=== PATIENT | female | born 2005 | race Caucasian/White ===

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

== ENCOUNTER 2023-05-06 16:36 | Emergency (ER) | payer MEDICAID, SELFPAY ==
[2023-05-06 16:58] VITALS: BP 143/78; PULSE 74; RESP 14; TEMP 36.8; O2SAT 100; BMI 26.9
--- NOTE | 2023-05-06 17:41 | ED_ITS ---
HPI - Dental/Oral General: Chief complaint: Dental/Oral Stated complaint: Mouth Pain Time Seen by Provider: 05/06/23 17:37 History of Present Illness: 17-year-old female comes in today with c omplaints of right upper jaw pain. Patient has some poor dentition with dental caries to the upper and lower wisdom teeth. Patient reports that for the last 2 days increasing pain and swelling to the right upper jaw. No obvious facial swelling is noted. Patient appears nontoxic. Patient is managing secretions well. Review of Systems General: Reports: 10 or more systems reviewed and unremarkable except in HPI and below PFSH ED PFSH: Medical History No significant past medical history Surgical History No significant past surgical history Physical Exam Const: COMMON NORMALS: alert HENMT: COMMON NORMALS: normocephalic and Normal external nose present HEAD & SCALP: normocephalic NOSE: Normal external nose present MOUTH: Normal oral and palatal mucosa present TEETH & GINGIVA: Yes gingiva abnormal (Gingival redness and swelling right upper jaw) and Yes other (Dental caries no keo to the third molar right upper jaw with surrounding red) Neck/C-Spine: COMMON NORMALS: full ROM and no meningeal signs Resp: COMMON NORMALS: normal respiratory effort Cardio: COMMON NORMALS: regular rate RATE: regular rate Back/Pelvis: COMMON NORMALS: thoracic and lumbar spine normal to inspection Extremity: COMMON NORMALS: full ROM Neuro: SENSORIUM/ORIENTATION: Yes alert MENINGEAL SIGNS: Yes no meningeal signs Skin: COMMON NORMALS: turgor normal GENERAL SKIN EXAM: turgor normal Course Vital Signs: Vital signs: Vital Signs Temperature 98.2 F 05/06/23 16:58 Pulse Rate 74 05/06/23 16:58 Respiratory Rate 14 05/06/23 16:58 Blood Pressure 143/78 05/06/23 16:58 Pulse Oximetry 100 05/06/23 16:58 Oxygen Delivery Me thod Room Air 05/06/23 16:58 [facility] - Dental/Oral Medical Decision Making 17-year-old female comes in with right upper jaw pain. On exam patient has some poor dentition especially noted with the wisdom teeth of the right side. Patient has significant decay to both teeth. The upper jaw gingiva is erythematous with swelling. No obvious dental abscesses noted. Reviewed exam with patient recommended treatment for dental abscess with antibiotic and NSAIDs. Encourage fluids rest and follow-up with dentist. Differential diagnosis considered but not limited to tooth ache, dental abscess, retropharyngeal abscess. No signs of serious illness or injury was noted. Patient reported understanding of care plan. No radiology studies performed this visit Discharge Plan Discharge Patient Disposition: Home Clinical Impression: Dental abscess Condition: Stable Prescriptions: New amoxicillin-pot clavulanate 875-125 mg tablet 1 tab PO BID Qty: 14 0RF ketorolac 10 mg tablet 10 mg PO Q6H 5 Days Qty: 10 0RF Rx Instructions: do not use with naproxen or ibuprofen Discharge Orders: Discharge ED (Routine); Ordered 05/06/23 Ordered By: Tapan Gongora Referrals: Shabbir Fitch DO [Primary Care Provider] - Discharge Diet: Usual diet Discharge Activity: Increase activity as tolerated Patient Instructions: Toothache (ED) Activity Restrictions/Additional Instructions: Take antibiotic as directed. 1 tablet of Augmentin twice a day for 7 days. Use ketorolac 10 mg 1 tablet every 6 hours as needed for pain. You may use acetaminophen with the ketorolac. Do not use ibuprofen or naproxen with ketorolac. Drink plenty of water with medications. Follow-up with dentist for definitive care. Use ice or heat for further pain relief. Return to ED for new concerns. Coding Level of Care Code ED Jewel Sorter for Shea Stanton
[2023-05-06] MEDS: amoxicillin-clav 875-125 mg Tablet 1 TAB PO (18:10)
[2023-05-06] MEDS: ketorolac 30 mg/mL INJ IM (18:10)
== END 2023-05-06 18:18 | disposition home or self-care (01) ==
PROVIDERS: Emergency Provider Nurse Practitioner Family; PCP Family Medicine
DX: K04.7 Periapical abscess without sinus (principal)
CPT/HCPCS: 96372; 99284; J1885

== ENCOUNTER 2024-01-02 13:37 | Emergency (ER) | payer MEDICAID, SELFPAY ==
[2024-01-02] VITALS (7 sets, daily range): BP systolic 97–133; BP diastolic 55–85; PULSE 55–83; RESP 16–18; TEMP 36.9; O2SAT 99–100; BMI 26.9
[2024-01-02 15:02] LABS: Basophils # 0.1 10^3/uL (0.0-0.1); Eosinophils # 0.1 10^3/uL (0.0-0.8); Eosinophils % 1.6 %; Hematocrit 40.3 % (36-47); Lymphocytes # 1.6 10^3/uL (1.5-6.5); Lymphocytes % 32.3 %; Mean Corpuscular HGB Conc 33.3 g/dL (30-55); Mean Corpuscular Hemoglobin 29.4 pg (27-33); Mean Corpuscular Volume 88.4 fl (85-98); Mean Platelet Volume 9.1 fL (7.4-10.4); Monocytes # 0.4 10^3/uL (0.2-0.9); Monocytes % 7.9 %; Neutrophils # 2.88 10^3/uL (1.8-8.0); Neutrophils % 56.6 %; Nucleated Red Blood Cells % 0 %; Platelet Count 253 10^3/cmm (157-399); Red Blood Count 4.56 10^6/uL (3.85-5.65); Red Cell Distribution Width 11.9 % (12.1-15.1); White Blood Count 5.08 10^3/uL (4.5-13.0)
--- NOTE | 2024-01-02 15:02 | CTR_ITS ---
PROCEDURE INFORMATION: Exam: CT Abdomen And Pelvis With Contrast Exam date and time: 01/02/2024 3:41 PM Age: 18 years old Clinical indication: Abdominal pain; Additional info: Rlq pain TECHNIQUE: Imaging protocol: Computed tomography of the abdomen and pelvis with contrast. Axial, coronal and sagittal reformatted images were created and reviewed. Radiation optimization: All CT scans at this facility use at least one of these dose optimization techniques: automated exposure control; mA and/or kV adjustment per patient size (includes targeted exams where dose is matched to clinical indication); or iterative reconstruction. Contrast material: OMNI 350; Contrast volume: 100 ml; Contrast route: INTRAVENOUS (IV); COMPARISON: No relevant prior studies available. RADIATION DOSE METRICS: Total DLP (mGy-cm): 396.73 FINDINGS: Lungs: Subtle reticulonodular infiltrates at the left medial lung base, suggestive of small airway disease/aspiration. Diaphragm: Elevated left hemidiaphragm. Liver: Unremarkable. Gallbladder and biliary ducts: No radiodense gallstones. No biliary ductal dilatation. Pancreas: Unremarkable. Spleen: Unremarkable. Adrenal glands: Normal. No mass. Kidneys and ureters: No mass. No radiodense calculi. No hydronephrosis. Stomach and bowel: No bowel wall thickening. No obstruction. No pneumatosis. Appendix: Normal. Intraperitoneal space: Trace nonspecific free pelvic fluid, likely physiologic. No organized fluid collection. No free air. Vasculature: Unremarkable. No aneurysm. Lymph nodes: Small mesenteric lymph nodes, nonspecific in appearance. No pathologically enlarged lymph nodes. Urinary bladder: Mild circumferential urinary bladder wall thickening, likely secondary to underdistention. Reproductive: Unremarkable. Bones/joints: No acute osseous abnormality. Soft tissues: Unremarkable. CT/CT abdomen pelvis w con* [id number] IMPRESSION: 1. No CT evidence of acute intra-abdominal or pelvic pathology. 2. Additional findings, as above.
--- NOTE | 2024-01-02 15:04 | ED_ITS ---
HPI - Abdominal Pain 2 General: Chief Complaint: Abdominal Pain Stated Complaint: lower abd pain Time Seen by Provider: 01/02/24 13:49 Source: patient Mode of arrival: ambulatory Limitations: no limitations History of Present Illness: Patient is a 18-year-old female presenting to the emergency department with right lower quadrant abdominal pain occurring intermittently over the past 4 days. She still has her appendix. States that pain came on all of a sudden, it will last for 30 minutes to an hour, and then go away. No alleviating or exacerbating factors are reported. States that the pain is a stabbing sensation when it is present, and is associated with nausea. States she took a home test and it was negative. No reported fevers, but she does have some chills. No chest pain, shortness of breath, blood in her urine, dysuria, changes in bowel habits, or other symptoms reported at this time. MD elicited complaint: abdominal pain Onset (ago): day(s) Pain Consistency: intermittent Location: RLQ Severity: severe Quality: stabbing Radiation: none Migration to: no migration Exacerbating factors: nothing Relieving factors: nothing Associated Symptoms: Reports chills and nausea; Denies bloating, change in stool character, constipation, diarrhea, dysuria, fever(s), hematochezia and vomiting Related Data Previous Rx's Medication Instructions Recorded amoxicillin 875 mg-potassium 1 tab PO BID #14 tabs 05/06/23 clavulanate 125 mg tablet Allergies Allergy/AdvReac Type Severity Reaction Status Date / Time cinnamon Allergy ALGY-Anaphy Verified 05/06/23 16:58 laxis shellfish derived Allergy ALGY-Anaphy Verified 05/06/23 16:58 laxis sunscreen Allergy ALGY-Rash Uncoded 05/06/23 16:58 Review of Systems 2 General: Reports: 10 or more systems reviewed and unremarkable except in HPI and below Const: Reports: chills; Denies: fever(s), change in appetite, change in weight or diaphoresis ENMT: Denies: throat pain or hoarseness Card: Denies: chest pain, palpitations or lightheadedness Resp: Denies: dyspnea, productive cough or wheezing GI: Reports: abdominal pain and nausea; Denies: vomiting, diarrhea, constipation, bloating, change in stool character or hematochezia : Denies: flank pain, difficulty voiding, dysuria, urinary frequency or urinary urgency Musc: Denies: neck pain or back pain Skin/Breast: Denies: rash or new lesions Neuro: Denies: headache(s) or dizziness PFSH ED 2 PFSH: Medical History No significant past medical history Surgical History No significant past surgical history Physical Exam 2 Const: COMMON NORMALS: no acute distress, average body habitus, patient oriented x3, no limitations, healthy appearing, alert and well nourished G ENERAL APPEARANCE: cooperative and comfortable ORIENTATION/CONSCIOUSNESS: Yes awake HENMT: COMMON NORMALS: normocephalic, atraumatic, hearing grossly normal bilaterally, external ears normal, Normal external nose present, Normal nasal mucous membranes and turbinates present and moist oral mucous membranes HEAD & SCALP: normocephalic and atraumatic NOSE: Normal external nose present and Normal nasal mucous membranes and turbinates present EXTERNAL EAR: Yes external ears normal Eye: COMMON NORMALS: Equal, round and reactive pupils present, EOMs intact bilaterally, conjunctivae normal and normal visual oconnell by confrontation C ONJUNCTIVA: Yes conjunctivae normal PUPIL: Yes Equal, round and reactive pupils present Neck/C-Spine: COMMON NORMALS: full ROM, supple, no meningeal signs and no JVD Resp: COMMON NORMALS: normal respiratory effort, No retractions, No use of accessory muscles and clear to auscultation bilaterally AUSCULTATION: clear to auscultation bilaterally, no crackles, no rales, no rhonchi and no wheezes Cardio: COMMON NORMALS: no JVD, regular rate, regular rhythm, S1 normal heart sound present, S2 normal heart sound present, No gallops present (Cardio), No clicks present (Cardio), No murmurs present (Cardio), No rub (Cardio) and Peripheral pulses 2+ throughout RATE: regular rate RHYTHM: regular rhythm HEART SOUNDS: S1 normal heart sound present and S2 normal heart sound present PERIPHERAL PULSES: Peripheral pulses 2+ throughout GI: COMMON NORMALS: Normal to inspection, nondistended, normoactive bowel sounds present, Soft to palpation, No hepatosplenomegaly present and no masses AUSCULTATION: Yes normoactive bowel sounds PALPATION: Yes Soft to palpation, No Guarding due to palpation present (GI), No Rigid due to palpation and Yes No hepatosplenomegaly present RECTAL EXAM: deferred OTHER: Tenderness to palpation of the bilateral lower quadrants, right worse than left. Positive Rovsing. Positive psoas sign. Negative heel strike. : COMMON NORMALS: Yes no CVA tenderness BLADDER/KIDNEY EXAM: Yes no CVA tenderness Back/Pelvis: COMMON NORMALS: no CVA tenderness Extremity: COMMON NORMALS: normal to inspection and full ROM Neuro: COMMON NORMALS: patient oriented x3, moves all extremities, no focal motor deficits and no sensory deficits noted SENSORIUM/ORIENTATION: Yes alert MENINGEAL SIGNS: Yes no meningeal signs Psych: COMMON NORMALS: mental status grossly normal, cooperative and speech normal SPEECH: Yes normal speech Skin: COMMON NORMALS: no rashes or lesions noted GENERAL SKIN EXAM: no rashes or lesions noted Course 2 Vital Signs: Vital signs: Vital Signs Temperature 98.5 F 01/02/24 13:39 Pulse Rate 55 L 01/02/24 16:30 Respiratory Rate 16 01/02/24 14:53 Blood Pressure 115/62 01/02/24 16:30 Pulse Oximetry 100 01/02/24 16:30 Oxygen Delivery Me thod Room Air 01/02/24 16:30 MDM - Abdominal Pain Medical Decision Making Patient has had intermittent right lower quadrant pain for the past few days. Her vitals were normal on arrival. She had some positive appendiceal testing on exam, however CT did not show any evidence of an appendicitis. There were some nonspecific findings such as potential small lymph nodes and some free fluid, which could indicate mesenteric adenitis versus ruptured ovarian cyst among other differential diagnoses. However there is nothing surgical at this time and certainly her labs are all unremarkable. She was unable to give us a urine here, however states she currently is having a urinalysis cultured through her primary care and will follow-up on these results. Also encouraged her to follow-up with her primary care for general reevaluation to make sure her pain is improving with conservative therapy. Reasons to return were discussed. Lab Data 01/02/24 14:55 01/02/24 14:55 Labs/Radiology: Radiology Impressions Abdomen/Pelvis CT 01/02/24 15:[address]: 1[address] evidence of acute intra-abdominal or pelvic pathology. 2. Additional findings, as above. Laboratory Results WBC 5.08 10^3/uL (4.5-13.0) 01/02/24 14:55 RBC 4.56 10^6/uL (3.85-5.65) 01/02/24 14:55 Hgb 13.40 g/dL (12.4-14.8) 01/02/24 14:55 Hct 40.3 % (36-47) 01/02/24 14:55 MCV 88.4 fl (85-98) 01/02/24 14:55 MCH 29.4 pg (27-33) 01/02/24 14:55 MCHC 33.3 g/dL (30-55) 01/02/24 14:55 RDW 11.9 % (12.1-15.1) L 01/02/24 14:55 Plt Count 253 10^3/cmm (157-399) 01/02/24 14:55 MPV 9.1 fL (7.4-10.4) 01/02/24 14:55 Neut % (Auto) 56.6 % 01/02/24 14:55 Lymph % (Auto) 32.3 % 01/02/24 14:55 Wilcox % (Auto) 7.9 % 01/02/24 14:55 Eos % (Auto) 1.6 % 01/02/24 14:55 Baso % (Auto) 1.0 % 01/02/24 14:55 Neut # (Auto) 2.88 10^3/uL (1.8-8.0) 01/02/24 14:55 Lymph # (Auto) 1.6 10^3/uL (1.5-6.5) 01/02/24 14:55 Wilcox # (Auto) 0.4 10^3/uL (0.2-0.9) 01/02/24 14:55 Eos # (Auto) 0.1 10^3/uL (0.0-0.8) 01/02/24 14:55 Baso # (Auto) 0.1 10^3/uL (0.0-0.1) 01/02/24 14:55 Nucleated RBC % (auto) 0 % 01/02/24 14:55 Nucleated RBCs # 0.0 /100WBC 01/02/24 14:55 PT 12.90 SECONDS (12.1-14.9) 01/02/24 14:55 INR 0.94 (0.8-1.2) 01/02/24 14:55 Sodium 140 mmol/L (136-145) 01/02/24 14:55 Potassium 4.5 mmol/L (3.5-5.1) 01/02/24 14:55 Chloride 107 mmol/L (98-107) 01/02/24 14:55 Carbon Dioxide 25 mmol/L (22-29) 01/02/24 14:55 Anion Gap 12.5 (5-19) 01/02/24 14:55 BUN 8 mg/dL (6-20) 01/02/24 14:55 Creatinine 0.7 mg/dL (0.5-0.9) 01/02/24 14:55 GFR Calculation 106.7 mL/min (90-130) 01/02/24 14:55 Glucose 91 mg/dL (65-115) 01/02/24 14:55 Calculated Osmolality 288 mOsm/kg (285-295) 01/02/24 14:55 Calcium 8.7 mg/dL (8.5-10.5) 01/02/24 14:55 Total Bilirubin 0.4 mg/dL (0.15-1.2) 01/02/24 14:55 AST 10 U/L (0-32) 01/02/24 14:55 ALT 7 U/L (0-33) 01/02/24 14:55 Alkaline Phosphatase 75 U/L (35-105) 01/02/24 14:55 Total Protein 6.4 g/dL (6.6-8.7) L 01/02/24 14:55 Albumin 4.3 g/dL (3.5-5.2) 01/02/24 14:55 Globulin 2.1 g/dL (1.3-4.6) 01/02/24 14:55 Lipase 56 U/L (13-60) 01/02/24 14:55 HCG, Qual Negative (Negative) 01/02/24 14:55 All radiology interpretation(s) finalized by discharge Discharge Plan Discharge Patient Disposition: Home Clinical Impression: Abdominal pain Qualifiers: Abdominal location: lower abdomen, unspecified Qualified Code(s): R10.30 - Lower abdominal pain, unspecified Condition: Stable Prescriptions: No Action amoxicillin-pot clavulanate 875-125 mg tablet 1 tab PO BID Qty: 14 0RF Discharge Orders: Discharge ED (Routine); Ordered 01/02/24 Ordered By: Ghulam Degroot Patient Instructions: Abdominal Pain (ED) Activity Restrictions/Additional Instructions: Follow-up with your primary care in regards to your pending urinary testing and for general reevaluation. If your pain becomes more constant, severely worsens, or you develop any new or concerning symptoms please return to the emergency department as discussed. Continue alternating Tylenol and ibuprofen. Coding Level of Care Code ED Consulting Practice Manager for Shea Stanton
[2024-01-02 15:13] LABS: HCG, Serum Qual Negative (Negative); INR 0.94 (0.8-1.2)
[2024-01-02 15:20] LABS: Alanine Aminotransferase 7 U/L (0-33); Albumin Level 4.3 g/dL (3.5-5.2); Alkaline Phosphatase 75 U/L (35-105); Anion Gap 12.5 (5-19); Aspartate Amino Transferase 10 U/L (0-32); Blood Urea Nitrogen 8 mg/dL (6-20); Calcium 8.7 mg/dL (8.5-10.5); Carbon Dioxide 25 mmol/L (22-29); Chloride 107 mmol/L (98-107); Creatinine Clr Calc Pharmacy 114.8131; Globulin 2.1 g/dL (1.3-4.6); Glomerular Filtration Rate 106.7 mL/min (90-130); Glucose 91 mg/dL (65-115); Lipase 56 U/L (13-60); Osmolality Calculated 288 mOsm/kg (285-295); Potassium 4.5 mmol/L (3.5-5.1); Sodium 140 mmol/L (136-145); Total Bilirubin 0.4 mg/dL (0.15-1.2); Total Protein 6.4 g/dL (6.6-8.7)
[2024-01-02] MEDS: iohexol 350 mg/mL 500 mL Btl (per mL) IV (16:05)
== END 2024-01-02 16:44 | disposition home or self-care (01) ==
PROVIDERS: Emergency Medicine; Emergency Provider Physician Assistant
DX: R10.30 Lower abdominal pain, unspecified (principal)
CPT/HCPCS: 36415; 74177; 80053; 83690; 84703; 85025; 85610; 99285